=== PATIENT | female | born 1955 | race Two or more races ===

== ENCOUNTER 2021-04-01 17:43 | Emergency (ER) | payer MEDICARE ==
[~2021-04-01] VITALS: Ht 154.9 cm; Wt 62.3 kg
[2021-04-01 17:58] VITALS: BP 136/60; Ht 154.9 cm; Wt 62.3 kg
[2021-04-01] MEDS ORDERED: ULTRAM50 MG PO (20:36)
== END 2021-04-01 20:45 | disposition home or self-care (01) ==
LOC: D.ER 17:43
DX: M25.551 Pain in right hip (principal); S70.01XA Contusion of right hip, initial encounter; W18.30XA Fall on same level, unspecified, initial encounter; I10 Essential (primary) hypertension; J45.909 Unspecified asthma, uncomplicated; K21.9 Gastro-esophageal reflux disease without esophagitis